=== PATIENT | female | born 1930 | race Caucasian/White ===

== ENCOUNTER → 2016-03-28 | Outpatient (CLI) | payer MEDICARE, MEDICAID ==
[~2016-03-28] MED LIST: ASPIRIN 81M81 MG/TA2 PO; ATROVENT I0.2 MG/1 M IH; BAYER PLUS325 MG PO; CALCIUM 600600 MG PO; CATAPRES 0.1MG0.1 MG PO; CEFTIN 250250 MG/TAB PO; CIPRO 250MG TA250 MG PO; DITROPAN 5MG TAB5 MG PO; DITROPAN XL 5MG5 M1 PO; EPA1000 MG PO; FERROUS SU325 MG/TAB PO; IRON65 MG PO; K-DUR 2020 MEQ PO; KLOR-CON 1010 MEQ PO; LASIX 40MG TABL40 MG PO; LASIX 80MG TABL80 MG PO; LEVAQUIN 2250 MG/TAB PO; LEVAQUIN 5500 MG/TA1 PO; LOPID 600M600 MG/TAB PO; LOTRISONE 0.05%1 CRE TP; MIRAPEX0.5 MG PO; MOTRIN 200200 MG/TAB PO; NAMENDA XR 28MG PO; NIASPAN 500MG500 MG PO; NORCO 325 MG-51 TAB PO; NORVASC 10MG10 MG PO; NS INT FLUSH 1010 ML IV; NYAMYC100000 U/G TOP; NYAMYC100000 U/G TP; PAXIL40 MG PO; PEPTO BISMOL262 MG PO; PRINZIDE 12.5 M1 TA1 PO; RELAFEN 50500 MG/TAB PO; ROCEPHIN 2GM VIAL2 G IV; RT ALBUTER2.5 MG/0.5 IH; TOPROL XL100 MG PO; TRIAMCINOLONE0.5% TP; TRICOR145 MG PO; TYLENOL 325MG325 MG PO; ULTRAM 50MG TAB50 MG PO; VITAMIN C500 MG PO; VITAMIN D 1001000 IU PO; [UNRECOGNIZED DRUG - CODE] IV
[2016-03-28 12:21] LABS: CALCIUM 10.5 mg/dL (8.4-10.2); CREATININE, serum 0.73 mg/dL (0.52-1.25); POTASSIUM 4.2 mmol/L (3.4-5.0)
== END ==
LOC: ZCOL.LAB 11:35
PROVIDERS: Internal Medicine
DX: I10 Essential (primary) hypertension (principal)

== ENCOUNTER → 2016-08-16 | Outpatient (CLI) | payer MEDICARE, MEDICAID | LOC: COL.RAD 09:28 | DX: M79.644 Pain in right finger(s) (principal); M18.0 Bilateral primary osteoarthritis of first carpometacarpal joints; M19.042 Primary osteoarthritis, left hand; M81.0 Age-related osteoporosis without current pathological fracture; M89.742 Major osseous defect, left hand; M89.741 Major osseous defect, right hand ==

== ENCOUNTER → 2016-09-03 | Outpatient (CLI) | payer MEDICARE, MEDICAID | LOC: COL.RAD 09:35 | DX: M18.0 Bilateral primary osteoarthritis of first carpometacarpal joints (principal); M79.644 Pain in right finger(s) | CPT/HCPCS: J3301; Q9967 ==

== ENCOUNTER → 2016-11-05 | Outpatient (CLI) | payer MEDICARE, MEDICAID ==
[2016-11-05 16:47] LABS: BASO # 0.1 (0.0-0.2); BASO % 0.9 % (0.0-2.0); EOS # 0.5 (0.0-0.7); EOS % 4.4 % (0-4.0); GRAN # 6.7 (1.4-6.5); GRAN % 60.1 % (42.2-75.2); HEMATOCRIT 42.1 % (37.0-47.0); LYMPH # 2.8 (1.2-3.4); LYMPH % 24.8 % (20.0-51.0); MEAN CELL VOLUME 85 fl (80.0-100.0); MEAN CORPUSCULAR HEMOGLOBIN 28 pg (27.0-31.0); MEAN CORPUSCULAR HGB CONC 33 g/dl (33.0-37.0); MONO # 1.1 (0.1-0.6); MONO % 9.4 % (1.7-9.3); PLATELET COUNT 349 K/mm3 (130-400); RED BLOOD COUNT 4.95 M/mm3 (4.10-5.30); REDCELL DISTRIBUTION WIDTH-CV 14.9 % (11.5-14.5); WHITE BLOOD COUNT 11.1 K/mm3 (4.8-10.8)
[2016-11-05 16:57] LABS: CALCIUM 9.6 mg/dL (8.4-10.2); CREATININE, serum 0.61 mg/dL (0.52-1.25); POTASSIUM 4.3 mmol/L (3.4-5.0)
== END ==
LOC: ZCOL.LAB 16:17
PROVIDERS: Internal Medicine
DX: D50.9 Iron deficiency anemia, unspecified (principal); I10 Essential (primary) hypertension

== ENCOUNTER 2017-01-22 09:33 | Emergency (ER) | payer MEDICARE, MEDICAID ==
[2005-10-19 22:51] VITALS: BP 105/56
[~2017-01-22] VITALS: Ht 160 cm; Wt 86.8 kg
[2017-01-22 09:39] VITALS: BP 151/71; TEMP 96.9
[2017-01-22 10:16] LABS: BASO # 0.1 (0.0-0.2); EOS # 0.4 (0.0-0.7); EOS % 3.5 % (0-4.0); GRAN # 7.5 (1.4-6.5); GRAN % 63.6 % (42.2-75.2); HEMATOCRIT 41.6 % (37.0-47.0); HEMOGLOBIN 13.9 g/dl (12.5-16.0); LYMPH # 2.4 (1.2-3.4); LYMPH % 20.7 % (20.0-51.0); MEAN CELL VOLUME 85 fl (80.0-100.0); MEAN CORPUSCULAR HEMOGLOBIN 28 pg (27.0-31.0); MEAN CORPUSCULAR HGB CONC 33 g/dl (33.0-37.0); MONO # 1.3 (0.1-0.6); PLATELET COUNT 339 K/mm3 (130-400); RED BLOOD COUNT 4.92 M/mm3 (4.10-5.30); WHITE BLOOD COUNT 11.8 K/mm3 (4.8-10.8)
[2017-01-22 10:25] LABS: COLLECTION METHOD CLEAN CATCH
[2017-01-22 10:44] LABS: ADJUSTED CALCIUM 9.9 mg/dL (8.4-10.2); ALBUMIN 3.9 gm/dL (3.5-5.0); BILIRUBIN,TOTAL 0.5 mg/dL (0.0-1.0); CALCIUM 9.8 mg/dL (8.4-10.2); CREATININE, serum 0.55 mg/dL (0.52-1.25); POTASSIUM 3.6 mmol/L (3.4-5.0); TOTAL PROTEIN 7.5 gm/dL (6.4-8.2)
[2017-01-22 10:49] LABS: MUCOUS Present /lpf; PH 7 (5-8); SQUAMOUS EPITHELIAL 0-2 /hpf; URINE APPEARANCE Hazy; URINE BACTERIA Rare /hpf; URINE BILIRUBIN Negative (NEGATIVE); URINE BLOOD Negative (NEGATIVE); URINE COLOR Yellow; URINE GLUCOSE Negative (NEGATIVE); URINE KETONE Negative (NEGATIVE); URINE LEUKOCYTE ESTERASE Trace (NEGATIVE); URINE PROTEIN(semi-quant) Negative (NEGATIVE); URINE RBC None Seen /hpf; URINE UROBILINOGEN Negative (NEGATIVE); URINE WBC 0-2 /hpf
[2017-01-22] MEDS ORDERED: VITAMIN D3400 I1 PO (11:08)
[2017-01-22] MEDS ORDERED: LOMOTIL 0.025 M1 TAB PO (11:10)
[2017-01-22] MEDS ORDERED: NAMENDA XR 28MG PO (11:11)
[2017-01-22] MEDS ORDERED: ZANTAC 150MG T150 MG PO (11:12)
[2017-01-22] MEDS ORDERED: VESICARE10 MG PO (11:12)
[2017-01-22] MEDS ORDERED: TOPROL XL 25MG25 MG PO (11:13)
[2017-01-22] MEDS ORDERED: FOSAMAX 70MG TA70 MG PO (11:13)
[2017-01-22] MEDS ORDERED: COLACE 100100 MG/CAP PO (11:13)
[2017-01-22] MEDS ORDERED: ANTIVERT 12.512.5 MG PO (11:14)
[2017-01-22] MEDS ORDERED: LEXAPRO 10MG10 MG PO (11:14)
[2017-01-22] MEDS ORDERED: NORCO 325 MG-51 TAB PO (11:15)
[2017-01-22 12:28] VITALS: PULSE 62
== END 2017-01-22 12:29 | disposition home or self-care (01) ==
LOC: COL.ER 09:33
PROVIDERS: Family Medicine
DX: S06.339A Contusion and laceration of cerebrum, unspecified, with loss of consciousness of unspecified duration, initial encounter (principal); G20 Parkinson's disease; Z23 Encounter for immunization; Z79.82 Long term (current) use of aspirin; Z90.49 Acquired absence of other specified parts of digestive tract; W18.39XA Other fall on same level, initial encounter; W22.8XXA Striking against or struck by other objects, initial encounter; Y92.009 Unspecified place in unspecified non-institutional (private) residence as the place of occurrence of the external cause

== ENCOUNTER → 2017-01-24 | Outpatient (CLI) | payer MEDICARE, MEDICAID ==
[~2017-01-24] MED LIST changes: +ANTIVERT 12.512.5 MG PO; +CARAFATE S1 GM/10 ML PO; +CEFTIN500 MG PO; +COLACE 100100 MG/CAP PO; +FOSAMAX 70MG TA70 MG PO; +LEXAPRO 10MG10 MG PO; +LIPITOR 40MG TA40 MG PO; +LOMOTIL 0.025 M1 TAB PO; +PRILOSEC 20MG20 MG PO; +TOPROL XL 25MG25 MG PO; +VESICARE10 MG PO; +VITAMIN D3400 I1 PO; +ZANTAC 150MG T150 MG PO
== END ==
LOC: COL.RAD 08:51
DX: M79.672 Pain in left foot (principal)

== ENCOUNTER 2017-01-26 07:06 | Emergency (ER) | payer MEDICARE, MEDICAID ==
[2005-10-19 22:51] VITALS: BP 105/56
[~2017-01-26] VITALS: Ht 160 cm; Wt 86.8 kg
[2017-01-26 07:06] VITALS: TEMP 97
[~2017-01-26 07:06] MED LIST changes: -CARAFATE S1 GM/10 ML PO; -CEFTIN500 MG PO; -LIPITOR 40MG TA40 MG PO; -PRILOSEC 20MG20 MG PO
[2017-01-26 07:56] LABS: BASO # 0.1 (0.0-0.2); BASO % 0.7 % (0.0-2.0); EOS # 0.5 (0.0-0.7); EOS % 3.8 % (0-4.0); GRAN # 8.7 (1.4-6.5); GRAN % 70.9 % (42.2-75.2); HEMATOCRIT 41.1 % (37.0-47.0); HEMOGLOBIN 13.4 g/dl (12.5-16.0); LYMPH # 1.9 (1.2-3.4); LYMPH % 15.7 % (20.0-51.0); MEAN CELL VOLUME 85 fl (80.0-100.0); MEAN CORPUSCULAR HEMOGLOBIN 28 pg (27.0-31.0); MEAN CORPUSCULAR HGB CONC 33 g/dl (33.0-37.0); MEAN PLATELET VOLUME 9.7 fl (7.4-10.4); MONO % 8.4 % (1.7-9.3); PLATELET COUNT 347 K/mm3 (130-400); RED BLOOD COUNT 4.85 M/mm3 (4.10-5.30); WHITE BLOOD COUNT 12.3 K/mm3 (4.8-10.8)
[2017-01-26 07:59] LABS: ADJUSTED CALCIUM 9.7 mg/dL (8.4-10.2); ALBUMIN 3.8 gm/dL (3.5-5.0); BILIRUBIN,TOTAL 0.5 mg/dL (0.0-1.0); CALCIUM 9.5 mg/dL (8.4-10.2); CREATININE, serum 0.6 mg/dL (0.52-1.25); POTASSIUM 3.6 mmol/L (3.4-5.0); TOTAL PROTEIN 7.3 gm/dL (6.4-8.2)
[2017-01-26 08:18] LABS: COLLECTION METHOD CLEAN CATCH
[2017-01-26 08:35] LABS: AMORPHOUS CRYSTAL Present /uL; MUCOUS Present /lpf; PH 8 (5-8); URINE APPEARANCE Turbid; URINE BACTERIA Rare /hpf; URINE BILIRUBIN Negative (NEGATIVE); URINE BLOOD Negative (NEGATIVE); URINE COLOR Yellow; URINE GLUCOSE Negative (NEGATIVE); URINE KETONE Negative (NEGATIVE); URINE LEUKOCYTE ESTERASE 2+ (NEGATIVE); URINE PROTEIN(semi-quant) Negative (NEGATIVE); URINE RBC None Seen /hpf; URINE UROBILINOGEN Negative (NEGATIVE); URINE WBC 20-50 /hpf
[2017-01-26] MEDS ORDERED: CEFTIN500 MG PO (08:55)
[2017-01-26 09:20] VITALS: BP 135/62; PULSE 62
== END 2017-01-26 09:20 | disposition home or self-care (01) ==
LOC: COL.ER 07:06
PROVIDERS: Emergency Medicine
DX: S00.93XA Contusion of unspecified part of head, initial encounter (principal); N39.0 Urinary tract infection, site not specified; Z79.82 Long term (current) use of aspirin; W05.0XXA Fall from non-moving wheelchair, initial encounter
CPT/HCPCS: J0696

== ENCOUNTER 2017-01-29 09:14 | Emergency (ER) | payer MEDICARE, MEDICAID ==
[2005-10-19 22:51] VITALS: BP 105/56
[~2017-01-29] VITALS: Ht 160 cm; Wt 86.8 kg
[~2017-01-29 09:14] MED LIST changes: +CEFTIN500 MG PO
[2017-01-29 09:27] VITALS: TEMP 97.8
[2017-01-29] MEDS ORDERED: CARAFATE S1 GM/10 ML PO (12:17)
[2017-01-29 12:53] VITALS: BP 118/55; PULSE 59
== END 2017-01-29 12:53 | disposition home or self-care (01) ==
LOC: COL.ER 09:14
DX: K21.9 Gastro-esophageal reflux disease without esophagitis (principal); Z79.82 Long term (current) use of aspirin

== ENCOUNTER 2017-02-21 16:01 | Inpatient (IN) | payer MEDICARE, MEDICAID ==
[~2017-02-21] VITALS: Ht 160 cm; Wt 88.2 kg
[~2017-02-21 16:01] MED LIST changes: +CARAFATE S1 GM/10 ML PO
[2017-02-21 16:32] LABS: BASO # 0.1 (0.0-0.2); BASO % 0.9 % (0.0-2.0); EOS # 0.7 (0.0-0.7); EOS % 7.1 % (0-4.0); GRAN # 5.1 (1.4-6.5); GRAN % 52.1 % (42.2-75.2); HEMATOCRIT 38.9 % (37.0-47.0); LYMPH % 29.9 % (20.0-51.0); MEAN CELL VOLUME 84 fl (80.0-100.0); MEAN CORPUSCULAR HEMOGLOBIN 28 pg (27.0-31.0); MEAN CORPUSCULAR HGB CONC 33 g/dl (33.0-37.0); MEAN PLATELET VOLUME 9.4 fl (7.4-10.4); MONO % 9.7 % (1.7-9.3); PLATELET COUNT 282 K/mm3 (130-400); RED BLOOD COUNT 4.66 M/mm3 (4.10-5.30); REDCELL DISTRIBUTION WIDTH-CV 14.4 % (11.5-14.5)
[2017-02-21 16:44] LABS: ALANINE AMINOTRANSFERASE 32 U/L (9-52); ALBUMIN 3.5 gm/dL (3.5-5.0); ALKALINE PHOSPHATASE 140 U/L (50-136); ANION GAP 9 mmol/L (7-16); AST,SGOT 18 U/L (15-37); BILIRUBIN,TOTAL 0.5 mg/dL (0.0-1.0); BLOOD UREA NITROGEN 10 mg/dL (7-17); C-REACTIVE PROTEIN 1.6 mg/dL (0.0-0.9); CALCIUM 9.6 mg/dL (8.4-10.2); CARBON DIOXIDE 27 mmol/L (22-30); CHLORIDE 105 mmol/L (98-107); CREATININE, serum 0.57 mg/dL (0.52-1.25); GLUCOSE 94 mg/dL (74-106); POTASSIUM 3.9 mmol/L (3.4-5.0); SODIUM 141 mmol/L (137-145); TOTAL PROTEIN 6.9 gm/dL (6.4-8.2)
[2017-02-21 16:49] LABS: COLLECTION METHOD CATHETER
[2017-02-21 16:53] LABS: TROPONIN-I < 0.012 ng/mL (0.000-0.034)
[2017-02-21 16:57] LABS: PH 6 (5-8); SQUAMOUS EPITHELIAL 0-2 /hpf; URINE APPEARANCE Clear; URINE BACTERIA Rare /hpf; URINE BILIRUBIN Negative (NEGATIVE); URINE BLOOD Negative (NEGATIVE); URINE COLOR Yellow; URINE GLUCOSE Negative (NEGATIVE); URINE KETONE Negative (NEGATIVE); URINE LEUKOCYTE ESTERASE Negative (NEGATIVE); URINE NITRATE Negative (NEGATIVE); URINE PROTEIN(semi-quant) Negative (NEGATIVE); URINE RBC 0-2 /hpf; URINE UROBILINOGEN Negative (NEGATIVE)
[2017-02-21] MEDS ORDERED: ANTIVERT 12.512.5 MG PO (17:08)
[2017-02-21] MEDS ORDERED: PRILOSEC 20MG20 MG PO (17:34)
[2017-02-21 20:43] VITALS: BP 131/46; PULSE 57; TEMP 97.7
[2017-02-22 03:29] VITALS: BP 138/56; PULSE 70; TEMP 98.1
[2017-02-22 06:57] LABS: BASO # 0.1 (0.0-0.2); EOS # 0.6 (0.0-0.7); EOS % 6.4 % (0-4.0); GRAN # 5.8 (1.4-6.5); GRAN % 61.1 % (42.2-75.2); HEMOGLOBIN 12.7 g/dl (12.5-16.0); LYMPH # 2.1 (1.2-3.4); LYMPH % 21.5 % (20.0-51.0); MEAN CELL VOLUME 84 fl (80.0-100.0); MEAN CORPUSCULAR HEMOGLOBIN 27 pg (27.0-31.0); MEAN CORPUSCULAR HGB CONC 33 g/dl (33.0-37.0); MEAN PLATELET VOLUME 9.9 fl (7.4-10.4); MONO # 0.9 (0.1-0.6); MONO % 9.7 % (1.7-9.3); PLATELET COUNT 295 K/mm3 (130-400); RED BLOOD COUNT 4.63 M/mm3 (4.10-5.30); REDCELL DISTRIBUTION WIDTH-CV 14.4 % (11.5-14.5)
[2017-02-22 07:16] LABS: CALCIUM 9.2 mg/dL (8.4-10.2); CREATININE, serum 0.55 mg/dL (0.52-1.25); POTASSIUM 3.4 mmol/L (3.4-5.0)
[2017-02-22 08:37] VITALS: BP 130/61; PULSE 65; TEMP 97.9
[2017-02-22 12:07] VITALS: BP 134/45; PULSE 60; TEMP 98.2
[2017-02-22] MEDS ORDERED: LIPITOR 40MG TA40 MG PO (13:18)
== END 2017-02-22 14:16 | DRG 71 ==
LOC: COL.ER 16:01 → MEDICAL 17:56 → EDBEDREQ 18:31 → MEDICAL 21:00
PROVIDERS: Emergency Medicine
DX: G93.41 Metabolic encephalopathy (principal); G45.9 Transient cerebral ischemic attack, unspecified; I10 Essential (primary) hypertension; I44.0 Atrioventricular block, first degree; E66.9 Obesity, unspecified
CPT/HCPCS: 99223-AI; 99238; J1650; J7030

== ENCOUNTER → 2017-03-13 | Outpatient (CLI) | payer MEDICARE, MEDICAID ==
[~2017-03-13] MED LIST changes: +LIPITOR 40MG TA40 MG PO; +PRILOSEC 20MG20 MG PO
[2017-03-13 13:53] LABS: COLLECTION METHOD CLEAN CATCH
[2017-03-13 14:11] LABS: MUCOUS Present /lpf; PH 6 (5-8); SQUAMOUS EPITHELIAL 0-2 /hpf; URINE APPEARANCE Hazy; URINE BACTERIA None Seen /hpf; URINE BILIRUBIN Negative (NEGATIVE); URINE BLOOD Negative (NEGATIVE); URINE COLOR Yellow; URINE GLUCOSE Negative (NEGATIVE); URINE KETONE Negative (NEGATIVE); URINE LEUKOCYTE ESTERASE 1+ (NEGATIVE); URINE NITRATE Negative (NEGATIVE); URINE PROTEIN(semi-quant) Negative (NEGATIVE); URINE RBC 0-2 /hpf
== END ==
LOC: ZCOL.LAB 13:52
PROVIDERS: Internal Medicine
DX: R30.0 Dysuria (principal)

== ENCOUNTER → 2017-03-27 | Outpatient (CLI) | payer MEDICARE, MEDICAID ==
[2017-03-27 16:25] LABS: CALCIUM 9.4 mg/dL (8.4-10.2); CREATININE, serum 0.62 mg/dL (0.52-1.25); POTASSIUM 3.5 mmol/L (3.4-5.0)
== END ==
LOC: ZCOL.LAB 15:09
PROVIDERS: Internal Medicine
DX: E55.9 Vitamin D deficiency, unspecified (principal); I10 Essential (primary) hypertension; R60.9 Edema, unspecified

== ENCOUNTER → 2017-06-14 | Outpatient (CLI) | payer MEDICARE, MEDICAID ==
[2017-06-14 15:37] LABS: ALBUMIN 3.2 gm/dL (3.5-5.0); BILIRUBIN UNCONJUGATED 0.2 mg/dL (0.0-1.1); BILIRUBIN,DIRECT 0.3 mg/dL (0.0-0.4); BILIRUBIN,TOTAL 0.4 mg/dL (0.0-1.0); TOTAL PROTEIN 6.7 gm/dL (6.4-8.2)
[2017-06-14 15:48] LABS: CHOLESTEROL RISK RATIO 3.5
== END ==
LOC: ZCOL.LAB 14:53
PROVIDERS: Internal Medicine
DX: G20 Parkinson's disease (principal); E78.5 Hyperlipidemia, unspecified

== ENCOUNTER 2017-08-13 05:20 | Emergency (ER) | payer MEDICARE, MEDICAID ==
[2005-10-19 22:51] VITALS: BP 105/56
[~2017-08-13] VITALS: Ht 160 cm; Wt 84.1 kg
[2017-08-13 05:28] VITALS: TEMP 97.6
[2017-08-13] MEDS ORDERED: CARAFATE S1 GM/10 ML PO (06:37)
[2017-08-13] MEDS ORDERED: LASIX 20MG TABL20 MG PO (06:37)
[2017-08-13] MEDS ORDERED: PEPCID 20MG TAB20 MG PO (06:37)
[2017-08-13] MEDS ORDERED: CEPHALEXIN500 M1 PO (06:52)
[2017-08-13 07:12] VITALS: BP 123/53; PULSE 64
== END 2017-08-13 07:13 | disposition home or self-care (01) ==
LOC: COL.ER 05:20
DX: S09.90XA Unspecified injury of head, initial encounter (principal); S01.01XA Laceration without foreign body of scalp, initial encounter; Z23 Encounter for immunization; W08.XXXA Fall from other furniture, initial encounter; W22.8XXA Striking against or struck by other objects, initial encounter; Y92.129 Unspecified place in nursing home as the place of occurrence of the external cause

== ENCOUNTER → 2017-10-17 | Outpatient (REF) ==
[~2017-10-17] MED LIST changes: +CEPHALEXIN500 M1 PO; +LASIX 20MG TABL20 MG PO; +PEPCID 20MG TAB20 MG PO
[2017-10-17 18:51] LABS: COLLECTION METHOD CATHETER
[2017-10-17 19:13] LABS: PH 7 (5-8); SQUAMOUS EPITHELIAL 0-2 /hpf; URINE APPEARANCE Hazy; URINE BACTERIA Rare /hpf; URINE BILIRUBIN Negative (NEGATIVE); URINE BLOOD Negative (NEGATIVE); URINE COLOR Yellow; URINE GLUCOSE Negative (NEGATIVE); URINE KETONE Negative (NEGATIVE); URINE LEUKOCYTE ESTERASE 1+ (NEGATIVE); URINE NITRATE Negative (NEGATIVE); URINE PROTEIN(semi-quant) Negative (NEGATIVE); URINE RBC 0-2 /hpf; URINE UROBILINOGEN Negative (NEGATIVE)
== END ==
LOC: ZCOL.LAB 18:50
DX: N32.81 Overactive bladder (principal)

== ENCOUNTER → 2018-07-22 | Outpatient (CLI) | payer MEDICARE, MEDICAID ==
[2018-07-22 21:45] LABS: CALCIUM 9.4 mg/dL (8.4-10.2); CREATININE, serum 0.68 (0.52-1.25); POTASSIUM 3.8 mmol/L (3.4-5.0)
== END ==
LOC: COL.LAB 21:12
PROVIDERS: Nurse Practitioner
DX: R60.9 Edema, unspecified (principal)

== ENCOUNTER → 2018-09-24 | Outpatient (CLI) | payer MEDICARE, MEDICAID ==
[2018-09-24 15:32] LABS: BASO # 0.1 (0.0-0.2); EOS # 0.6 (0.0-0.7); EOS % 5.7 % (0-4.0); GRAN # 5.8 (1.4-6.5); GRAN % 56.9 % (42.2-75.2); HEMATOCRIT 37.9 % (37.0-47.0); HEMOGLOBIN 12.3 g/dl (12.5-16.0); LYMPH # 2.8 (1.2-3.4); LYMPH % 27.3 % (20.0-51.0); MEAN CELL VOLUME 83 fl (80.0-100.0); MEAN CORPUSCULAR HEMOGLOBIN 27 pg (27.0-31.0); MEAN CORPUSCULAR HGB CONC 33 g/dl (33.0-37.0); MEAN PLATELET VOLUME 9.6 fl (7.4-10.4); MONO # 0.9 (0.1-0.6); MONO % 8.6 % (1.7-9.3); PLATELET COUNT 314 K/mm3 (130-400); RED BLOOD COUNT 4.58 M/mm3 (4.10-5.30); REDCELL DISTRIBUTION WIDTH-CV 15.3 % (11.5-14.5)
[2018-09-24 16:01] LABS: ALBUMIN 3.3 gm/dL (3.5-5.0); BILIRUBIN UNCONJUGATED 0.2 mg/dL (0.0-1.1); BILIRUBIN,DIRECT 0.1 mg/dL (0.0-0.4); BILIRUBIN,TOTAL 0.3 mg/dL (0.0-1.0); TOTAL PROTEIN 6.7 gm/dL (6.4-8.2)
[2018-09-24 16:16] LABS: CHOLESTEROL RISK RATIO 4.3
[2018-09-24 16:47] LABS: TSH w REFLEX 3.92 uIU/mL (0.465-4.680)
== END ==
LOC: ZCOL.LAB 14:55
PROVIDERS: Nurse Practitioner
DX: E03.9 Hypothyroidism, unspecified (principal); I95.9 Hypotension, unspecified; E78.5 Hyperlipidemia, unspecified; E55.9 Vitamin D deficiency, unspecified

== ENCOUNTER → 2018-09-25 | Outpatient (CLI) | payer MEDICARE, MEDICAID | LOC: ZCOL.LAB 16:08 | DX: E55.9 Vitamin D deficiency, unspecified (principal) ==

== ENCOUNTER → 2019-02-05 | Outpatient (CLI) | payer MEDICARE, MEDICAID ==
[2019-02-05 08:01] LABS: MUCOUS Present /lpf; URINE BACTERIA Many /hpf
== END ==
LOC: ZCOL.LAB 07:15
PROVIDERS: Internal Medicine
DX: R30.0 Dysuria (principal); R35.0 Frequency of micturition

== ENCOUNTER → 2019-02-27 | Outpatient (CLI) | payer MEDICARE, MEDICAID ==
[2019-02-27 13:17] LABS: CREATININE, serum 0.63 (0.52-1.25)
== END ==
LOC: ZCOL.LAB 12:38
PROVIDERS: Internal Medicine
DX: R79.89 Other specified abnormal findings of blood chemistry (principal)

== ENCOUNTER → 2019-08-03 | Outpatient (CLI) | payer MEDICARE, MEDICAID ==
[2019-08-03 11:03] LABS: ALBUMIN 3.7 gm/dL (3.5-5.0); BILIRUBIN,TOTAL 0.5 mg/dL (0.0-1.0); CALCIUM 9.6 mg/dL (8.4-10.2); CREATININE, serum 0.54 (0.52-1.25); POTASSIUM 3.9 mmol/L (3.4-5.0); TOTAL PROTEIN 7.5 gm/dL (6.4-8.2)
[2019-08-03 11:32] LABS: THYROID STIMULATING HORMONE 6.26 uIU/mL (0.465-4.680)
[2019-08-04 13:08] LABS: RPR (VDRL) XXX
[2019-08-04 18:59] LABS: FOLATE (FOLIC ACID) 12.3 ng/mL (7.0-31.4)
== END ==
LOC: ZCOL.LAB 08:42
PROVIDERS: Psychiatry & Neurology Neurology
DX: G31.83 Neurocognitive disorder with Lewy bodies (principal); F02.81 Dementia in other diseases classified elsewhere, unspecified severity, with behavioral disturbance

== ENCOUNTER → 2019-08-06 | Outpatient (CLI) | payer MEDICARE, MEDICAID ==
[2019-08-06 11:16] LABS: BASO # 0.1 (0.0-0.2); BASO % 0.8 % (0.0-2.0); EOS # 0.8 (0.0-0.7); GRAN # 8.4 (1.4-6.5); GRAN % 63.4 % (42.2-75.2); HEMATOCRIT 40.4 % (37.0-47.0); HEMOGLOBIN 12.8 g/dl (12.5-16.0); LYMPH # 2.8 (1.2-3.4); LYMPH % 21.3 % (20.0-51.0); MEAN CELL VOLUME 84 fl (80.0-100.0); MEAN CORPUSCULAR HEMOGLOBIN 27 pg (27.0-31.0); MEAN CORPUSCULAR HGB CONC 32 g/dl (33.0-37.0); MEAN PLATELET VOLUME 9.3 fl (7.4-10.4); MONO # 1.1 (0.1-0.6); MONO % 8.1 % (1.7-9.3); PLATELET COUNT 369 K/mm3 (130-400); RED BLOOD COUNT 4.83 M/mm3 (4.10-5.30); REDCELL DISTRIBUTION WIDTH-CV 15.5 % (11.5-14.5)
== END ==
LOC: ZCOL.LAB 10:57
PROVIDERS: Psychiatry & Neurology Neurology
DX: G20 Parkinson's disease (principal); F02.81 Dementia in other diseases classified elsewhere, unspecified severity, with behavioral disturbance

== ENCOUNTER → 2019-08-11 | Outpatient (CLI) | payer MEDICARE, MEDICAID ==
[2019-08-13 20:31] LABS: CADMIUM BLOOD <0.2 ng/mL (0.0-4.9); LEAD,SERUM** <1.0 mcg/dL (0.0-4.9); MERCURY,SERUM <1 ng/mL (0-9)
== END ==
LOC: ZCOL.LAB 12:20
PROVIDERS: Internal Medicine
DX: R78.71 Abnormal lead level in blood (principal)

== ENCOUNTER → 2019-08-31 | Outpatient (CLI) | payer MEDICARE, MEDICAID ==
[2019-08-31 09:52] LABS: CALCIUM 9.5 mg/dL (8.4-10.2); CREATININE, serum 0.57 (0.52-1.25); POTASSIUM 3.7 mmol/L (3.4-5.0)
== END ==
LOC: ZCOL.LAB 08:51
PROVIDERS: Internal Medicine
DX: R79.89 Other specified abnormal findings of blood chemistry (principal)

== ENCOUNTER 2019-12-19 16:39 | Inpatient (IN) | payer MEDICARE, MEDICAID ==
[~2019-12-19] VITALS: Ht 160 cm; Wt 77.2 kg
[2019-12-19 17:10] LABS: HEMATOCRIT 38.5 % (37.0-47.0); HEMOGLOBIN 12.5 g/dl (12.5-16.0); MEAN CELL VOLUME 80 fl (80.0-100.0); MEAN CORPUSCULAR HEMOGLOBIN 26 pg (27.0-31.0); MEAN CORPUSCULAR HGB CONC 33 g/dl (33.0-37.0); MEAN PLATELET VOLUME 9.3 fl (7.4-10.4); PLATELET COUNT 528 K/mm3 (130-400); RED BLOOD COUNT 4.83 M/mm3 (4.10-5.30); REDCELL DISTRIBUTION WIDTH-CV 15.9 % (11.5-14.5)
[2019-12-19 17:19] LABS: ALBUMIN 3.5 gm/dL (3.5-5.0); BILIRUBIN,TOTAL 1.3 mg/dL (0.0-1.0); CALCIUM 9.7 mg/dL (8.4-10.2); CREATININE, serum 0.76 (0.52-1.25); TOTAL PROTEIN 7.3 gm/dL (6.4-8.2)
[2019-12-19 17:20] LABS: LYMPHOCYTE 5 % (20.0-51.0); NEUTROPHILS 90 % (42.0-75.2); PLATELET ESTIMATE INCREASED (NORMAL)
[2019-12-19 17:21] LABS: ANISOCYTOSIS 1+; TARGET CELLS 1+
[2019-12-19 17:36] LABS: ARTERIAL BLD GAS O2 SATURATION 94.1 % (92-100); ARTERIAL BLD GAS TCO2 CT 25.6; ARTERIAL BLOOD GAS BASE EXCESS 0.2 (-2-2); ARTERIAL BLOOD GAS HCO3 24.5 meq/L (22-26); ARTERIAL BLOOD GAS PCO2 38.5 mmHg (35-45); ARTERIAL BLOOD GAS PO2 71.8 mmHg (80-100); ARTERIAL BLOOD GAS pH 7.42 (7.35-7.45)
[2019-12-19 17:47] LABS: C-REACTIVE PROTEIN 31.6 mg/dL (0.0-0.9)
[2019-12-19 18:11] LABS: COLLECTION METHOD CLEAN CATCH
[2019-12-19 18:45] LABS: MUCOUS Present /lpf; PH 5 (5-8); URINE APPEARANCE Cloudy; URINE BACTERIA Many /hpf; URINE BILIRUBIN Positive (NEGATIVE); URINE BLOOD Negative (NEGATIVE); URINE COLOR Amber; URINE GLUCOSE Negative (NEGATIVE); URINE KETONE Negative (NEGATIVE); URINE LEUKOCYTE ESTERASE Negative (NEGATIVE); URINE NITRATE Negative (NEGATIVE); URINE PROTEIN(semi-quant) 1+ (NEGATIVE); URINE UROBILINOGEN >=4.0 mg/dL (NEGATIVE)
[2019-12-19] MEDS ORDERED: ZYRTEC 10MG10 MG PO (19:48)
[2019-12-19] MEDS ORDERED: IMODIUM 2MG CAPS2 MG PO ×2 (19:49→19:50)
[2019-12-19] MEDS ORDERED: MUCINEX 60600 MG/TA1 PO (19:49)
[2019-12-19] MEDS ORDERED: MYRBETR25MG PO (19:50)
[2019-12-19] MEDS ORDERED: ZOLOFT 50MG50 MG PO (19:51)
[2019-12-19 22:29] VITALS: BP 170/71; PULSE 79; TEMP 98.5
[2019-12-19] MEDS ORDERED: PRINZIDE 25 MG-1 TAB PO (22:29)
--- NOTE | 2019-12-19 23:00 | NUR ---
Admitted to nedical floor from ER with DX pneumonia, forgetful,vague with answers-confused as to time/date, very pleasant, on Bipap, tolerating well, INT to right hand did fall out-restarted INT to left hand. Up to BSC with 2 assist, voiding good amounts.
[2019-12-20] MEDS ORDERED: TYLENOL 325MG325 MG PO (02:50)
[2019-12-20] MEDS ORDERED: NYSTATIN CREAM15 GM TP (02:58)
[2019-12-20] MEDS ORDERED: PEPCID 20MG TAB20 MG PO (02:59)
[2019-12-20] MEDS ORDERED: TUMS ULTRA ST1000 MG PO (03:01)
[2019-12-20] MEDS ORDERED: NORCO 325 MG-51 TAB PO (03:03)
[2019-12-20 04:40] VITALS: BP 119/42; PULSE 70; TEMP 98.4
--- NOTE | 2019-12-20 06:30 | NUR ---
Slept well- did wear Bipap all shift,, Up to BSC for a total of 3 times during the night-voiding well. Did cover buttock open areas with mepilex. Resp virus panel completed- negative.
[2019-12-20 07:15] LABS: BASO # 0.1 (0.0-0.2); BASO % 0.4 % (0.0-2.0); EOS # 0.2 (0.0-0.7); EOS % 1.2 % (0-4.0); GRAN # 13.6 (1.4-6.5); GRAN % 80.6 % (42.2-75.2); HEMATOCRIT 37.3 % (37.0-47.0); HEMOGLOBIN 11.7 g/dl (12.5-16.0); LYMPH # 1.6 (1.2-3.4); LYMPH % 9.3 % (20.0-51.0); MEAN CELL VOLUME 81 fl (80.0-100.0); MEAN CORPUSCULAR HEMOGLOBIN 26 pg (27.0-31.0); MEAN CORPUSCULAR HGB CONC 31 g/dl (33.0-37.0); MEAN PLATELET VOLUME 9.7 fl (7.4-10.4); MONO # 1.3 (0.1-0.6); MONO % 7.7 % (1.7-9.3); PLATELET COUNT 458 K/mm3 (130-400); RED BLOOD COUNT 4.58 M/mm3 (4.10-5.30)
[2019-12-20 07:35] LABS: ALBUMIN 3.2 gm/dL (3.5-5.0); BILIRUBIN,TOTAL 0.7 mg/dL (0.0-1.0); CALCIUM 9.3 mg/dL (8.4-10.2); CREATININE, serum 0.74 (0.52-1.25); POTASSIUM 3.3 mmol/L (3.4-5.0); TOTAL PROTEIN 6.6 gm/dL (6.4-8.2)
[2019-12-20 08:13] VITALS: BP 102/87; PULSE 79; TEMP 98.6
[2019-12-20 11:48] VITALS: BP 118/65; PULSE 77; TEMP 97.9
[2019-12-20 16:14] VITALS: BP 108/43; PULSE 84; TEMP 98.7
--- NOTE | 2019-12-20 17:03 | NUR ---
SW met with patient to complete intake. Patient was sleeping and daughter was present who is also the DP- Anita [phone]. Avelinother states that patient utilizes a walker and lives at [facility] in [facility]. Daughter states that patient's PCP is Cecile Stringer, pharmacy is the pharmacy that [facility] utilizes. Micheal states that SW team should contact Dimitri at [facility] for all DC information as she would be the person that would be assisting during discharge planning. Daughter had no further comments or questions. SW will continue to follow.
[2019-12-20 19:57] VITALS: BP 120/54; PULSE 78; TEMP 97.7
--- NOTE | 2019-12-20 21:25 | NUR ---
Resting in bed. Alert to self. Assessment complete. Wheezing on inspiration, otherwise clear. Heart sounds normal. Bowels active x4. Pulses present throughout. Bilateral lower ext edema +1. INT left hand flushed without complications. Ulcers present to buttocks-mepilex in place. Folds under buttocks erythema. Groin area erythema present. Denies pain. Denies needs at this time. Call light in reach.
[2019-12-21] VITALS (9 sets, daily range): BP systolic 108–125; BP diastolic 34–95; PULSE 71–89; TEMP 97.4–98.2
--- NOTE | 2019-12-21 00:25 | NUR ---
Resting in bed. Denies pain. Denies needs. Call light in reach.
--- NOTE | 2019-12-21 02:22 | NUR ---
Resting in bed. Bipap on. Denies needs. Call light in reach.
--- NOTE | 2019-12-21 04:20 | NUR ---
Resting in bed. Denies needs. Call light in reach.
--- NOTE | 2019-12-21 05:27 | NUR ---
Patient unable to urinate. 558 ml in bladder. Unable to void. Spoke with Dr. Burleson. Straight cath at this time.
--- NOTE | 2019-12-21 06:06 | NUR ---
Patient straight cathed with 600ml of dark yellow urine out. Otherwise uneventful night. Resting in bed this AM. Call light in reach.
--- NOTE | 2019-12-21 07:08 | NUR ---
Report given to DEBBIE Vilchis
[2019-12-21 08:05] LABS: BASO # 0.1 (0.0-0.2); BASO % 0.5 % (0.0-2.0); CALCIUM 9.4 mg/dL (8.4-10.2); CREATININE, serum 0.73 (0.52-1.25); EOS # 0.3 (0.0-0.7); GRAN # 13.3 (1.4-6.5); GRAN % 78.1 % (42.2-75.2); HEMOGLOBIN 11.4 g/dl (12.5-16.0); LYMPH # 1.7 (1.2-3.4); LYMPH % 9.9 % (20.0-51.0); MEAN CELL VOLUME 81 fl (80.0-100.0); MEAN CORPUSCULAR HEMOGLOBIN 26 pg (27.0-31.0); MEAN CORPUSCULAR HGB CONC 32 g/dl (33.0-37.0); MEAN PLATELET VOLUME 10.1 fl (7.4-10.4); MONO # 1.5 (0.1-0.6); MONO % 8.7 % (1.7-9.3); PLATELET COUNT 497 K/mm3 (130-400); POTASSIUM 3.8 mmol/L (3.4-5.0); RED BLOOD COUNT 4.45 M/mm3 (4.10-5.30); REDCELL DISTRIBUTION WIDTH-CV 16.3 % (11.5-14.5)
[2019-12-21 08:06] LABS: HEMATOCRIT 36.2 % (37.0-47.0)
--- NOTE | 2019-12-21 09:06 | NUR ---
Pt napping upon entry, easily awakened, no C/O pain at this time, has unproductive cough. Shift assessments complete, left Pt call light in reach, bed in lowest position.
--- NOTE | 2019-12-21 15:20 | NUR ---
Initial visit; Patient and her daughter thanked Lieutenant Ballistics for looking in on her and offering encouragement and prayer. Lieutenant Ballistics will follow up while Dory is a patient here.
--- NOTE | 2019-12-21 16:00 | NUR ---
RUBINA met with the patient and her daughter, Anita, to review d/c plan and to discuss PT/OT's recommendation of returning back to [facility] with home health vs SNF. The patient states that she needs to talk to her siblings about this first before making a decision. RUBINA contacted and faxed updates to Dimitri at [facility]. Dimitri reports that they bring in their therapy from [facility] and that they will see the patient 2-5 times a week. RUBINA updated Anita about this. Anita states that she would just prefer for the patient to return back to [facility] with increased assistance for using the restroom and outpatient therapy. SW to inform the clinical team of this.
--- NOTE | 2019-12-21 18:12 | NUR ---
Pt resting in the room today, has had some C/O pain this afternoon and medications given for relief with good results. Pt urinated 550 ml this afternoon, was able to use bedside commode with assistance. No other issues noted today. VS have remained stable.
--- NOTE | 2019-12-21 18:55 | NUR ---
Resting in bed. Assessment complete. Wheezing on inspiration and expiration. Cough green mucus. Sputum cup in room. Heart sounds normal. Bowels active x4. Pulses present throughout. Bilateral lower ext edema +1. x2 ulcers to buttocks. Dressing CDI. Repositioned. Erythem/excoriation to groin area. INT left hand flushed without complications. Denies pain at this time. Denies needs. Call light in reach.
--- NOTE | 2019-12-21 23:58 | NUR ---
Patient up to bedside commode and returned to bed .Denies needs. Call light in reach.
[2019-12-22] VITALS (7 sets, daily range): BP systolic 106–134; BP diastolic 53–78; PULSE 80–109; TEMP 97.2–98.8
--- NOTE | 2019-12-22 04:14 | NUR ---
Resting in bed. Denies needs. Call light in reach.
--- NOTE | 2019-12-22 04:31 | NUR ---
Patient reported generalized aches after awakening. Provided with PRN tylenol. Call light in reach.
--- NOTE | 2019-12-22 05:26 | NUR ---
Patient required tylenol for aches during night. Otherwise uneventful night. Resting in bed this AM. Call light in reach.
[2019-12-22 06:51] LABS: HEMATOCRIT 37.8 % (37.0-47.0); HEMOGLOBIN 12.2 g/dl (12.5-16.0); MEAN CELL VOLUME 80 fl (80.0-100.0); MEAN CORPUSCULAR HEMOGLOBIN 26 pg (27.0-31.0); MEAN CORPUSCULAR HGB CONC 32 g/dl (33.0-37.0); MEAN PLATELET VOLUME 9.8 fl (7.4-10.4); PLATELET COUNT 517 K/mm3 (130-400); RED BLOOD COUNT 4.73 M/mm3 (4.10-5.30); REDCELL DISTRIBUTION WIDTH-CV 15.9 % (11.5-14.5)
--- NOTE | 2019-12-22 07:01 | NUR ---
Report given to DEBBIE Vilchis
[2019-12-22 07:08] LABS: CALCIUM 9.3 mg/dL (8.4-10.2); CREATININE, serum 0.64 (0.52-1.25); POTASSIUM 3.2 mmol/L (3.4-5.0)
[2019-12-22 07:10] LABS: EOSINOPHIL 6 % (0-4); LYMPHOCYTE 13 % (20.0-51.0); MICROCYTOSIS 1+; NEUTROPHILS 72 % (42.0-75.2); PLATELET ESTIMATE INCREASED (NORMAL)
--- NOTE | 2019-12-22 09:55 | NUR ---
Pt awake and alert this morning upon entry, no C/O pain. Shift assessments complete, left Pt call light in reach, bed in lowest position, alarm on.
--- NOTE | 2019-12-22 09:57 | NUR ---
Follow-up visit; Patient thanked Label Maker for coming in to check on her this morning and was pleased when Label Maker offered her a blessing.
[2019-12-22 12:23] LABS: ARTERIAL BLD GAS TCO2 CT 29.5; ARTERIAL BLOOD GAS BASE EXCESS 3.9 (-2-2); ARTERIAL BLOOD GAS HCO3 28.3 meq/L (22-26); ARTERIAL BLOOD GAS PCO2 41.6 mmHg (35-45); ARTERIAL BLOOD GAS PO2 63.7 mmHg (80-100); ARTERIAL BLOOD GAS pH 7.45 (7.35-7.45)
[2019-12-22 14:00] LABS: INR 1.3 (0.8-3.0); PROTHROMBIN TIME 15.1 SECONDS (9.7-12.8)
--- NOTE | 2019-12-22 15:01 | NUR ---
RUBINA attended clinical rounds. The patient is going to have a CAT scan of her chest today. RUBINA faxed updates to [facility].
[2019-12-22 18:01] LABS: ARTERIAL BLD GAS O2 SATURATION 93.6 % (92-100); ARTERIAL BLD GAS TCO2 CT 28.1; ARTERIAL BLOOD GAS BASE EXCESS 2.5 (-2-2); ARTERIAL BLOOD GAS HCO3 26.8 meq/L (22-26); ARTERIAL BLOOD GAS PCO2 40.4 mmHg (35-45); ARTERIAL BLOOD GAS PO2 67.6 mmHg (80-100); ARTERIAL BLOOD GAS pH 7.44 (7.35-7.45)
[2019-12-22 18:10] LABS: GLUCOSE,PLEURAL FLUID 110 mg/dL; TOTAL PROTEIN,PLEURAL FLUID 4.4 gm/dL
[2019-12-22 18:17] LABS: PLEURAL FLUID RBC 1000 /mm3 (0-0); PLEURAL FLUID WBC 2541 /mm3
[2019-12-22 18:21] LABS: PLEURAL FLUID APPEARANCE CLEAR; PLEURAL FLUID COLOR YELLOW
--- NOTE | 2019-12-22 20:30 | NUR ---
Initial shift assessment done- - pt very pleasant, confused--pt had pulled her IV out-laying it on the bed side table. Will start another INT - O2 at 8L high flow, denies any SOB or pain.
[2019-12-23 03:49] VITALS: BP 113/59; PULSE 80; TEMP 97.8
--- NOTE | 2019-12-23 04:59 | NUR ---
Quiet night-- has been resting quietly- no SOB, has been on Bipap most of the night, VSS
--- NOTE | 2019-12-23 06:00 | NUR ---
Up to BSC, could not void--no urine during this 12 shift and unsure of urine output on days, straight cathed per order for 500cc dark dominic urine
[2019-12-23 06:27] LABS: HEMATOCRIT 40.2 % (37.0-47.0); HEMOGLOBIN 12.7 g/dl (12.5-16.0); MEAN CELL VOLUME 80 fl (80.0-100.0); MEAN CORPUSCULAR HEMOGLOBIN 25 pg (27.0-31.0); MEAN CORPUSCULAR HGB CONC 32 g/dl (33.0-37.0); MEAN PLATELET VOLUME 9.8 fl (7.4-10.4); PLATELET COUNT 676 K/mm3 (130-400); RED BLOOD COUNT 5.04 M/mm3 (4.10-5.30); REDCELL DISTRIBUTION WIDTH-CV 16.2 % (11.5-14.5)
[2019-12-23 06:40] LABS: ANISOCYTOSIS 1+; BAND 5 % (0-10); CALCIUM 9.9 mg/dL (8.4-10.2); CREATININE, serum 0.94 (0.52-1.25); LYMPHOCYTE 7 % (20.0-51.0); MAGNESIUM 2.4 mg/dL (1.6-2.3); MICROCYTOSIS 1+; NEUTROPHILS 88 % (42.0-75.2); PLATELET ESTIMATE INCREASED (NORMAL)
--- NOTE | 2019-12-23 07:59 | NUR ---
PATIENT WORE BIPAP LAST NOC, OFF AT 0800, SPO2 92%, 12/6, 40%, RICHARD WEL.
[2019-12-23 08:06] VITALS: BP 119/66; PULSE 85; TEMP 98.3
[2019-12-23 11:05] LABS: ARTERIAL BLD GAS O2 SATURATION 97.6 % (92-100); ARTERIAL BLD GAS TCO2 CT 25.4; ARTERIAL BLOOD GAS HCO3 24.2 meq/L (22-26); ARTERIAL BLOOD GAS PCO2 37.8 mmHg (35-45); ARTERIAL BLOOD GAS pH 7.42 (7.35-7.45)
[2019-12-23 11:19] VITALS: BP 117/43; PULSE 77; TEMP 97.4
--- NOTE | 2019-12-23 15:45 | NUR ---
The patient is having a repeat COVID test. RUBINA notified and faxed updates to [facility]. The receptionist secretary reports that she will notify her RN, Dimitri, and have Dimitri contact RUBINA back.
--- NOTE | 2019-12-23 16:28 | NUR ---
BIPAP PER DR SCOTT IS HOUR OF SLEEP PRN. PATIENT ON 4.5LPM, SPO2 93%.
--- NOTE | 2019-12-23 18:17 | NUR ---
Pt assessment completed and charted, medications administered per mar. Pt alert, disoriented, some confused conversation but speech is clear. Pt is pleasant and cooperative w/ cares. Pt has LWR INT IV, flushed well this afternoon, appears infiltrated, will have Jaimie RN take a look and reassess, pt also c/o pain at the site. LS diminished throughout, pt on 5-6L HF NC satting low 90s. Pt was moved from room 317 to 307, placed in Droplet/Contact precautions, covid swabbed. HRRR. Pulses strong bilaterally. Pt denied any needs throughout day, has been sleeping off and on throughout day. Pt was assisted to recliner w/ PT prior to room transfer.
[2019-12-23 20:00] VITALS: BP 122/68; PULSE 67
--- NOTE | 2019-12-23 21:32 | NUR ---
Pt resting in bed, asessment completed. lung sounds are diminished with fine crackles, productive cough and pt reports shortness of breath. heart sounds are regular and normal. alert and oriented to person and place, hard of hearing. oral medications given per APR. pt IV site infiltrated and painful to the touch. charge nurse to attempt IV placement. no other needs at this time, will continue to monitor.
--- NOTE | 2019-12-23 21:47 | NUR ---
CHARGE NURSE, TIRSO LEWIS STARTED IV. 22 GAUGE IN THE LEFT WRIST, IV ANTIBIOTICS RUNNING NOW.
[2019-12-23 23:12] VITALS: BP 120/72; PULSE 68
[2019-12-24] VITALS (529 sets, daily range): BP systolic 118–138; BP diastolic 61–72; PULSE 61–75; TEMP 97.6–98.9; O2SAT 86–99
[2019-12-24 03:15] LABS: ARTERIAL BLD GAS O2 SATURATION 91.4 % (92-100); ARTERIAL BLD GAS TCO2 CT 29.2; ARTERIAL BLOOD GAS BASE EXCESS 3.2 (-2-2); ARTERIAL BLOOD GAS HCO3 27.9 meq/L (22-26); ARTERIAL BLOOD GAS PCO2 42.9 mmHg (35-45); ARTERIAL BLOOD GAS PO2 60.9 mmHg (80-100); ARTERIAL BLOOD GAS pH 7.43 (7.35-7.45)
--- NOTE | 2019-12-24 05:48 | NUR ---
pt slept most of night, on bipap. currently on oxygen via high flow nasal cannula at 5 liters. gave medications per APR. no fevers and vital signs remain stable, no other needs at this time.
--- NOTE | 2019-12-24 08:21 | NUR ---
Dimitri, at [facility], returned RUBINA's phone call. RUBINA updated Dimitri on the patient's current status. Dimitri reports that they can take the patient back, provided they can still care for her. Dimitri states that they would be able to provide increased assistance and help with oxygen.
--- NOTE | 2019-12-24 09:45 | NUR ---
Pt assessment complete. Pt is sleeping upon entry, she arouses to voice. She is oriented x2. Her breathing is tachypneic, O2 increased to 10L while in the room to maintain O2 saturation of 90%. Dr. Hilliard notified. Pt denies any pain. Occasionally has confused conversation. Pt very hard of hearing. IV to Lwrist flushes without complications. Mepilex changed to bottom, pt repositioned. Isolation precautions in place. Attempted lab draw x2, lab notified to have a tech draw blood order for PICC line in, AIVS notified. Bed alarm in place. Will continue to monitor.
--- NOTE | 2019-12-24 11:25 | NUR ---
Pt transferred down to ICU bed 7 at this time. Daughter Anita notified.
--- NOTE | 2019-12-24 11:30 | NUR ---
Patient received into icu room 7. She is on 10 L/min O2 with hiflow cannula. Dr. Hilliard gives order for Airvo. PHP DEVELOPER notified. She is examined and orders reviewed. Care taken over at this time.
--- NOTE | 2019-12-24 12:54 | NUR ---
Vancomycin Initial Dosing Pharmacy Note Ordering provider: Austin Burleson MD Indication/duration: CAP Relevant comorbidities: Covid PUI requiring 9L O2, on Zosyn LABS: eCrCl~ 40 mL/min, WBC 23.4, SCr has increased from 0.76 to 0.94 Recommendation: Loading dose: 1.5 grams given 12/24/19 @ 12:30 Maintenance dose: 1.25 grams every 24 hours Trough goal: 15-20 ug/mL Pharmacy will continue to follow and adjust as needed.
--- NOTE | 2019-12-24 13:00 | NUR ---
DEBBIE Lamb here to place PICC line.
[2019-12-24 13:20] LABS: ARTERIAL BLD GAS O2 SATURATION 93.6 % (92-100); ARTERIAL BLD GAS TCO2 CT 28.1; ARTERIAL BLOOD GAS BASE EXCESS 2.8 (-2-2); ARTERIAL BLOOD GAS HCO3 26.9 meq/L (22-26); ARTERIAL BLOOD GAS PCO2 39.5 mmHg (35-45); ARTERIAL BLOOD GAS PO2 68.5 mmHg (80-100); ARTERIAL BLOOD GAS pH 7.45 (7.35-7.45)
[2019-12-24 14:08] LABS: HEMOGLOBIN 11.3 g/dl (12.5-16.0); MEAN CELL VOLUME 79 fl (80.0-100.0); MEAN CORPUSCULAR HEMOGLOBIN 26 pg (27.0-31.0); MEAN CORPUSCULAR HGB CONC 32 g/dl (33.0-37.0); MEAN PLATELET VOLUME 9.4 fl (7.4-10.4); PLATELET COUNT 591 K/mm3 (130-400); RED BLOOD COUNT 4.42 M/mm3 (4.10-5.30)
[2019-12-24 14:13] LABS: ALBUMIN 2.9 gm/dL (3.5-5.0); BILIRUBIN,TOTAL 0.5 mg/dL (0.0-1.0); CALCIUM 8.7 mg/dL (8.4-10.2); CREATININE, serum 1.08 (0.52-1.25); MAGNESIUM 2.3 mg/dL (1.6-2.3); TOTAL PROTEIN 6.2 gm/dL (6.4-8.2)
[2019-12-24 14:26] LABS: C-REACTIVE PROTEIN 12.6 mg/dL (0.0-0.9)
[2019-12-24 14:27] LABS: POTASSIUM 2.9 mmol/L (3.4-5.0)
[2019-12-24 14:32] LABS: HEMATOCRIT 34.9 % (37.0-47.0)
[2019-12-24 15:23] LABS: ANISOCYTOSIS 1+; HYPOCHROMIA 1+; LYMPHOCYTE 7 % (20.0-51.0); MICROCYTOSIS 1+; NEUTROPHILS 92 % (42.0-75.2); PLATELET ESTIMATE INCREASED (NORMAL)
[2019-12-24 15:24] LABS: TOXIC GRANULATION PRESENT
--- NOTE | 2019-12-24 15:45 | NUR ---
Patient taken to CT at this time. She tolerated well.
--- NOTE | 2019-12-24 19:05 | NUR ---
Received report from DEBBIE Moran. Patient is resting quietly in bed. Vitals within normal limits. No further needs noted at this time.
--- NOTE | 2019-12-24 19:15 | NUR ---
REPORT GIVEN TO DEBBIE SIMMONS
[2019-12-25] VITALS (560 sets, daily range): BP systolic 114–149; BP diastolic 55–81; PULSE 52–64; TEMP 98.4; O2SAT 31–100
[2019-12-25 05:20] LABS: ARTERIAL BLD GAS O2 SATURATION 95.9 % (92-100); ARTERIAL BLD GAS TCO2 CT 24.9; ARTERIAL BLOOD GAS BASE EXCESS -0.7 (-2-2); ARTERIAL BLOOD GAS HCO3 23.7 meq/L (22-26); ARTERIAL BLOOD GAS PCO2 38.4 mmHg (35-45); ARTERIAL BLOOD GAS PO2 84.9 mmHg (80-100); ARTERIAL BLOOD GAS pH 7.41 (7.35-7.45)
[2019-12-25 05:47] LABS: BASO % 0.2 % (0.0-2.0); GRAN # 17.4 (1.4-6.5); HEMATOCRIT 38.8 % (37.0-47.0); HEMOGLOBIN 12.3 g/dl (12.5-16.0); LYMPH # 1.2 (1.2-3.4); LYMPH % 6.3 % (20.0-51.0); MEAN CELL VOLUME 79 fl (80.0-100.0); MEAN CORPUSCULAR HEMOGLOBIN 25 pg (27.0-31.0); MEAN CORPUSCULAR HGB CONC 32 g/dl (33.0-37.0); MEAN PLATELET VOLUME 9.5 fl (7.4-10.4); MONO # 0.7 (0.1-0.6); MONO % 3.4 % (1.7-9.3); PLATELET COUNT 662 K/mm3 (130-400); REDCELL DISTRIBUTION WIDTH-CV 16.1 % (11.5-14.5)
[2019-12-25 05:50] LABS: ALBUMIN 3.1 gm/dL (3.5-5.0); BILIRUBIN,TOTAL 0.5 mg/dL (0.0-1.0); CALCIUM 9.3 mg/dL (8.4-10.2); CREATININE, serum 1.04 (0.52-1.25); MAGNESIUM 2.5 mg/dL (1.6-2.3); PHOSPHOROUS 3.2 mg/dL (2.5-4.5); TOTAL PROTEIN 6.8 gm/dL (6.4-8.2)
--- NOTE | 2019-12-25 07:48 | NUR ---
Report given to DEBBIE Moran.
--- NOTE | 2019-12-25 17:58 | NUR ---
DR. BARTLETT CALLED REGARDING LENGTHENING QT INTERVAL, PER WOOD BORER. MEASUREMENT IS 0.62. DR. BARTLETT STATES THAT WE WILL CONTINUE TO MONITOR AND WILL READDRESS TOMORROW WITH A POSSIBLE EKG
--- NOTE | 2019-12-25 19:15 | NUR ---
Received report from DEBBIE Moran.
[2019-12-26] VITALS (821 sets, daily range): BP systolic 120–155; BP diastolic 54–79; PULSE 50–70; TEMP 97.6–98.3; O2SAT 78–98
[2019-12-26 05:21] LABS: ARTERIAL BLD GAS O2 SATURATION 95.5 % (92-100); ARTERIAL BLOOD GAS BASE EXCESS -3.4 (-2-2); ARTERIAL BLOOD GAS HCO3 20.9 meq/L (22-26); ARTERIAL BLOOD GAS PCO2 35.4 mmHg (35-45); ARTERIAL BLOOD GAS PO2 81.2 mmHg (80-100); ARTERIAL BLOOD GAS pH 7.39 (7.35-7.45)
[2019-12-26 06:30] LABS: BASO % 0.1 % (0.0-2.0); EOS % 0.1 % (0-4.0); GRAN # 18.1 (1.4-6.5); GRAN % 87.2 % (42.2-75.2); HEMOGLOBIN 12.1 g/dl (12.5-16.0); LYMPH # 1.2 (1.2-3.4); LYMPH % 5.8 % (20.0-51.0); MEAN CELL VOLUME 80 fl (80.0-100.0); MEAN CORPUSCULAR HEMOGLOBIN 25 pg (27.0-31.0); MEAN CORPUSCULAR HGB CONC 32 g/dl (33.0-37.0); MEAN PLATELET VOLUME 9.7 fl (7.4-10.4); MONO # 1.2 (0.1-0.6); MONO % 5.6 % (1.7-9.3); PLATELET COUNT 594 K/mm3 (130-400); RED BLOOD COUNT 4.77 M/mm3 (4.10-5.30); REDCELL DISTRIBUTION WIDTH-CV 16.1 % (11.5-14.5)
[2019-12-26 06:45] LABS: ALBUMIN 2.9 gm/dL (3.5-5.0); BILIRUBIN,TOTAL 0.4 mg/dL (0.0-1.0); CALCIUM 9.1 mg/dL (8.4-10.2); CREATININE, serum 0.92 (0.52-1.25); MAGNESIUM 2.6 mg/dL (1.6-2.3); PHOSPHOROUS 3.1 mg/dL (2.5-4.5); POTASSIUM 3.1 mmol/L (3.4-5.0); TOTAL PROTEIN 6.2 gm/dL (6.4-8.2)
--- NOTE | 2019-12-26 07:00 | NUR ---
Shift handoff received from DEBBIE Cuba.
--- NOTE | 2019-12-26 07:40 | NUR ---
Report given to DEBBIE Carvajal.
--- NOTE | 2019-12-26 08:00 | NUR ---
Shift assessment complete at this time. Plan of care reviewed at bedside with patient. Additional time taken to address any other needs or concerns. She denies pain or any other discomfort. Vitals stable. Bed in low position, call light within reach.
--- NOTE | 2019-12-26 12:00 | NUR ---
She is resting comfortably in bed. Denies pain or any other discomforts. Bed in low position, call light within reach.
--- NOTE | 2019-12-26 16:00 | NUR ---
She is resting comfortably in bed. Denying any pain or discomforts. Bed in low position, call light within reach.
--- NOTE | 2019-12-26 19:10 | NUR ---
Received report from DEBBIE Carvajal.
--- NOTE | 2019-12-26 19:14 | NUR ---
Shift handoff given to DEBBIE Cuba.
[2019-12-26 19:30] LABS: TB GOLD INTERPRETATION Indeterminate (Negative)
--- NOTE | 2019-12-26 20:01 | NUR ---
Notified PATRICIO Motley, of indeterminate result of TB test (QFT). According to comments attached to result, recollection of sample is recommended. Received orders to notify Dr. Hilliard in the AM.
[2019-12-27] VITALS (701 sets, daily range): BP systolic 139–155; BP diastolic 62–75; PULSE 52–80; TEMP 98–98.6; O2SAT 77–99
[2019-12-27 06:10] LABS: HEMATOCRIT 39.1 % (37.0-47.0); HEMOGLOBIN 12.4 g/dl (12.5-16.0); MEAN CELL VOLUME 80 fl (80.0-100.0); MEAN CORPUSCULAR HEMOGLOBIN 25 pg (27.0-31.0); MEAN CORPUSCULAR HGB CONC 32 g/dl (33.0-37.0); MEAN PLATELET VOLUME 9.8 fl (7.4-10.4); PLATELET COUNT 583 K/mm3 (130-400); RED BLOOD COUNT 4.91 M/mm3 (4.10-5.30); REDCELL DISTRIBUTION WIDTH-CV 16.1 % (11.5-14.5)
[2019-12-27 06:18] LABS: ARTERIAL BLD GAS TCO2 CT 26.4; ARTERIAL BLOOD GAS BASE EXCESS 0.2 (-2-2); ARTERIAL BLOOD GAS HCO3 25.1 meq/L (22-26); ARTERIAL BLOOD GAS PCO2 41.7 mmHg (35-45); ARTERIAL BLOOD GAS PO2 66.7 mmHg (80-100)
[2019-12-27 06:23] LABS: ALBUMIN 2.9 gm/dL (3.5-5.0); BILIRUBIN,TOTAL 0.5 mg/dL (0.0-1.0); CREATININE, serum 0.79 (0.52-1.25); MAGNESIUM 2.6 mg/dL (1.6-2.3); PHOSPHOROUS 2.8 mg/dL (2.5-4.5)
[2019-12-27 06:25] LABS: POTASSIUM 2.8 mmol/L (3.4-5.0)
[2019-12-27 06:32] LABS: BAND 5 % (0-10); HYPOCHROMIA 1+; LYMPHOCYTE 2 % (20.0-51.0); METAMYELOCYTE 1 % (0-0); MYELOCYTE 1 % (0-0); NEUTROPHILS 88 % (42.0-75.2); PLATELET ESTIMATE INCREASED (NORMAL)
[2019-12-27 06:33] LABS: ANISOCYTOSIS 1+
--- NOTE | 2019-12-27 06:45 | NUR ---
Notified DARREN of patient's critical WBC and potassium lab results. Will replace potassium according to protocol. No new orders received at this time.
--- NOTE | 2019-12-27 07:23 | NUR ---
Report given to DEBBIE Carvajal.
--- NOTE | 2019-12-27 08:00 | NUR ---
Shift assessment complete at this time. Plan of care reviewed at bedside with patient. Additional time taken to address any other needs or concerns. Vitals stable at this time. Denies pain or any other discomforts. Bed in low position, call light within reach, will continue to monitor.
--- NOTE | 2019-12-27 12:15 | NUR ---
Pt is resting comfortably in bed. Denies pain or any other discomforts. Bed in low position, call light within reach, will continue to monitor.
[2019-12-27 14:35] LABS: ANA SCREEN with REFLEX Negative (Negative)
--- NOTE | 2019-12-27 16:25 | NUR ---
She is resting comfortably in bed. Denies pain or any other discomforts. Bed in low position, call light within reach. Vitals stable.
--- NOTE | 2019-12-27 19:05 | NUR ---
Shift report given to DEBBIE Cuba.
[2019-12-28] VITALS (671 sets, daily range): BP systolic 127–137; BP diastolic 54–74; PULSE 48–74; TEMP 97.9–99; O2SAT 72–99
[2019-12-28 05:50] LABS: BASO % 0.1 % (0.0-2.0); GRAN # 19.9 (1.4-6.5); GRAN % 88.7 % (42.2-75.2); HEMATOCRIT 38.7 % (37.0-47.0); HEMOGLOBIN 12.2 g/dl (12.5-16.0); LYMPH # 1.1 (1.2-3.4); LYMPH % 4.7 % (20.0-51.0); MEAN CELL VOLUME 80 fl (80.0-100.0); MEAN CORPUSCULAR HEMOGLOBIN 25 pg (27.0-31.0); MEAN CORPUSCULAR HGB CONC 32 g/dl (33.0-37.0); MEAN PLATELET VOLUME 9.9 fl (7.4-10.4); MONO # 1.2 (0.1-0.6); MONO % 5.3 % (1.7-9.3); PLATELET COUNT 507 K/mm3 (130-400); RED BLOOD COUNT 4.84 M/mm3 (4.10-5.30); REDCELL DISTRIBUTION WIDTH-CV 16.3 % (11.5-14.5)
[2019-12-28 05:52] LABS: ARTERIAL BLD GAS O2 SATURATION 94.6 % (92-100); ARTERIAL BLD GAS TCO2 CT 25.7; ARTERIAL BLOOD GAS BASE EXCESS 0.4 (-2-2); ARTERIAL BLOOD GAS HCO3 24.6 meq/L (22-26); ARTERIAL BLOOD GAS PCO2 38.2 mmHg (35-45); ARTERIAL BLOOD GAS PO2 71.5 mmHg (80-100); ARTERIAL BLOOD GAS pH 7.43 (7.35-7.45)
[2019-12-28 06:10] LABS: ALBUMIN 2.8 gm/dL (3.5-5.0); BILIRUBIN,TOTAL 0.5 mg/dL (0.0-1.0); C-REACTIVE PROTEIN 2.7 mg/dL (0.0-0.9); CALCIUM 8.9 mg/dL (8.4-10.2); CREATININE, serum 0.75 (0.52-1.25); MAGNESIUM 2.6 mg/dL (1.6-2.3); PHOSPHOROUS 2.5 mg/dL (2.5-4.5); TOTAL PROTEIN 5.9 gm/dL (6.4-8.2)
--- NOTE | 2019-12-28 07:20 | NUR ---
Report given to DEBBIE Marie. Patient is sitting up in bed watching television. Vitals within normal limits. She is on AirVo at this time, 40L and 60% FiO2, tolerating well. No further needs noted at this time.
--- NOTE | 2019-12-28 09:00 | NUR ---
Follow up; Patient and Physician Scientist greeted eachother through closed doors. Physician Scientist continues to offer prayer for Dory.
--- NOTE | 2019-12-28 09:30 | NUR ---
Called report to RN for patient going to room 305. No questions asked.
--- NOTE | 2019-12-28 10:00 | NUR ---
rounded at patients bedside. He said he will be calling [facility] for possible transfer and asked if I could call the patients daughter, Anita. She was called shortly after and was updated on patient plan of care and of possible transfer to . I told her I would call her back as soon as I found out any updates.
--- NOTE | 2019-12-28 12:49 | NUR ---
RUBINA attended clinical rounds. The patient's repeat COVID results are still pending. Dr. Hillirad plans to speak to [facility] about a possible transfer. SW to fax updates to [facility] and will continue to follow.
--- NOTE | 2019-12-28 19:46 | NUR ---
Spoke to patients daughter. Updated her that patient will be moving to medical bed 305. ANd told her about plan for family meeting at 0930 tomorrow morning.
--- NOTE | 2019-12-28 23:21 | NUR ---
Pt arrived from ICU via bed. placed in room on airborne precautions. assessment completed and medications given per APR. lung sounds are diminished in all lobes, pt denies shortness of breath and reports a nonproductive cough. on AirVo currently. hear sounds are regular and bradycardic. two stage II pressure ulcers on the buttocks. no other needs at this time, will continue to monitor.
[2019-12-29] VITALS (7 sets, daily range): BP systolic 138–176; BP diastolic 62–80; PULSE 51–75; TEMP 97.7–99.9
--- NOTE | 2019-12-29 00:36 | NUR ---
this nurse received call for Tele monitor that pt heart rate was down to 45 sustaining. notified PATRICIO Motley. per orders from Tiesha CURRY, will continue to monitor and report back if heart rate drops below 40 bpm.
[2019-12-29 04:25] LABS: ARTERIAL BLD GAS O2 SATURATION 93.5 % (92-100); ARTERIAL BLD GAS TCO2 CT 28.4; ARTERIAL BLOOD GAS HCO3 27.2 meq/L (22-26); ARTERIAL BLOOD GAS PCO2 40.3 mmHg (35-45); ARTERIAL BLOOD GAS PO2 66.6 mmHg (80-100); ARTERIAL BLOOD GAS pH 7.45 (7.35-7.45)
--- NOTE | 2019-12-29 08:30 | NUR ---
PT PLEASANT, AOX4, VERY SOFTSPOKEN, PT REPORTS MINIMAL CHEST PAIN, DID NOT GIVE NUMBER. PT THEN SAID IT WENT AWAY, PT VITALS TAKEN, MEDICATIONS GIVEN, ASSESSMENT PERFORMED, WATER BROUGHT IN FOR PT, NO OTHER NEEDS AT THIS TIME.
--- NOTE | 2019-12-29 08:50 | NUR ---
RT CALLED ABOUT OXYGEN SATURATION AT 87%. PT RECOVERED TO 91%.
[2019-12-29 09:07] LABS: HEMATOCRIT 39.7 % (37.0-47.0); HEMOGLOBIN 12.7 g/dl (12.5-16.0); MEAN CELL VOLUME 81 fl (80.0-100.0); MEAN CORPUSCULAR HEMOGLOBIN 26 pg (27.0-31.0); MEAN CORPUSCULAR HGB CONC 32 g/dl (33.0-37.0); MEAN PLATELET VOLUME 10.3 fl (7.4-10.4); PLATELET COUNT 465 K/mm3 (130-400); RED BLOOD COUNT 4.92 M/mm3 (4.10-5.30); REDCELL DISTRIBUTION WIDTH-CV 16.3 % (11.5-14.5)
[2019-12-29 09:16] LABS: ALBUMIN 2.8 gm/dL (3.5-5.0); BILIRUBIN,TOTAL 0.5 mg/dL (0.0-1.0); CALCIUM 8.9 mg/dL (8.4-10.2); CREATININE, serum 0.66 (0.52-1.25); MAGNESIUM 2.7 mg/dL (1.6-2.3); PHOSPHOROUS 2.5 mg/dL (2.5-4.5); POTASSIUM 3.3 mmol/L (3.4-5.0); TOTAL PROTEIN 5.7 gm/dL (6.4-8.2)
--- NOTE | 2019-12-29 09:30 | NUR ---
PT STILL C/O CHEST PAIN, MILLIE AWARE.
[2019-12-29 09:39] LABS: LYMPHOCYTE 4 % (20.0-51.0); NEUTROPHILS 94 % (42.0-75.2); PLATELET ESTIMATE NORMAL (NORMAL)
--- NOTE | 2019-12-29 10:04 | NUR ---
RETURNED MISSED CALL FROM DR. BARTLETT, RT CALLED FOR EKG, LAB CALLED FOR TROPONIN, RADIOLOGY CALLED FOR XRAY. NO OTHER NEEDS.
--- NOTE | 2019-12-29 12:40 | NUR ---
I met with daughter Anita Damon and Dr Hilliard for family meeting with pt's son Adan on phone earlier this morning. Dr Hilliard explained the concerns that exist with covid and we are still waiting on latest testing, that her condition does not seem to be improving a lot and yet without a positive covid test, we are doing all we can for her as verified with [facility] and infectious disease. Upon completion of this meeting we moved up to patient's room after recieving appropriate clearance. Daughter Anita and I went intoo pt room with PPE to discuss the choices of comfort care vs continued aggressive care. Pt did listen to us and then stated she was comfortable (except when she had to cough) and that she was still wanting to pursue aggressive care in hopes of getting better. She was made aware that the choice is hers and that she can advise us anytime if her choice to pursue aggressive care changes. She acknowledged this. Dr Hilliard did come up to see pt and her daughter in the room, showed the xray results and the final decision is to use steroids for another 5 days and see where things are at that point. Visitation is very important to this family and daughter was very grateful for the chance to see her mother. They are aware that this visit is a one time thing at this point.
--- NOTE | 2019-12-29 16:37 | NUR ---
Account Manager Relief faxed clinical updates to [facility]. Patient had palliative consult and would like to continue with agressive treatment. SW will continue to follow.
[2019-12-29 17:03] LABS: ANGIOTENSIN CONVERTING ENZYME <5 U/L (16 - 85)
--- NOTE | 2019-12-29 17:04 | NUR ---
PT PLEASANT, AOX4, ON AIVOR 35L, 60% FIO2. VITALS STABLE, PUREWICC IN PLACE, READJUSTED Q2H, PT REFUSED TURNS TWICE. ALL PT MEDICATIONS GIVEN, PT REFUSED POTASSIUM IN JUICE SO POTASSIUM PILLS GIVEN. PT REFUSED BREAKFAST AND LUNCH STATING "IM JUST NOT HUNGRY". DAUGHTER VISITED TODAY, PT SEEMED IN BETTER SPIRITS AFTERWARDS. PICC LINE FLUSHING AND GETTING BLOOD RETURN. NO OTHER NEEDS AT THIS TIME.
--- NOTE | 2019-12-29 18:17 | NUR ---
PT INCONTINENT OF STOOL, PERICARE PROVIDED, NEW PUREWICC PLACED, MG AND BRIEF CHANGED, PT REPORTS NOT BEING ABLE TO EAT DINNER DUE TO NOT HAVING TEETH, PT REQUESTED ICE CREAM AND IT WAS GIVEN.
--- NOTE | 2019-12-29 22:47 | NUR ---
Pt resting in bed, assessment completed and medications given per MAR. lung sounds are diminished with crackles, pt reports shortness of breath and dry cough. oxygen via AirVo on at 35 liters. heart sounds are regular and normal, pulses equal bilaterally. two stage II pressure ulcers on each buttock, left side covered in mepilex. pt had loose medium bowel movement, changed and purewick changed. airborne precautions in place, no other needs at this time. will continue to monitor.
[2019-12-30] VITALS (7 sets, daily range): BP systolic 136–160; BP diastolic 57–87; PULSE 57–66; TEMP 97.7–100.3
--- NOTE | 2019-12-30 06:19 | NUR ---
pt sleeping most of the night, called for any needs. changed and purewick replaced as needed. continues on AirVo at 35 liters, oxygen sat at 92%. no other needs at this time.
[2019-12-30 06:54] LABS: CALCIUM 8.3 mg/dL (8.4-10.2); CREATININE, serum 0.59 (0.52-1.25)
[2019-12-30 07:16] LABS: POTASSIUM 2.9 mmol/L (3.4-5.0)
[2019-12-30 07:17] LABS: HEMATOCRIT 38.1 % (37.0-47.0); HEMOGLOBIN 12.1 g/dl (12.5-16.0); MEAN CELL VOLUME 80 fl (80.0-100.0); MEAN CORPUSCULAR HEMOGLOBIN 25 pg (27.0-31.0); MEAN CORPUSCULAR HGB CONC 32 g/dl (33.0-37.0); MEAN PLATELET VOLUME 10.6 fl (7.4-10.4); PLATELET COUNT 430 K/mm3 (130-400); RED BLOOD COUNT 4.78 M/mm3 (4.10-5.30); REDCELL DISTRIBUTION WIDTH-CV 15.9 % (11.5-14.5)
--- NOTE | 2019-12-30 07:26 | NUR ---
REPORTED CRITICAL LABS TO CHARLIE SANABRIA.
[2019-12-30 08:11] LABS: BAND 5 % (0-10); LYMPHOCYTE 9 % (20.0-51.0); NEUTROPHILS 85 % (42.0-75.2); PLATELET ESTIMATE NORMAL (NORMAL)
--- NOTE | 2019-12-30 08:50 | NUR ---
TESS, INFECTIOUS DISEASE RN CALLED ABOUT ISOLATION PRECAUTIONS. TESS AGREED WITH DR. HELMS ANALYSIS THAT PT DOES NOT NEED TO BE IN ISOLATION DUE TO 2 NEGATIVE COVID19 TESTS AND AN INDETERMINENT TB.
--- NOTE | 2019-12-30 08:54 | NUR ---
Daughter Anita notified that second covid test is back and that after Dr Hilliard, infectious disease physician and Bridgett our infection control nurse have talked, pt will be moved to a regular hospital room and that she may now visit her per hospital visitation rules. Daughter was relieved to hear this and will plan to be in to see her Mom later today.
--- NOTE | 2019-12-30 09:00 | NUR ---
PT AOX4, PLEASANT, PT GIVEN MEDICATIONS, VITALS REVIEWED, ASSESSMENT PERFORMED, PT REPOSITIONED, PT NOT INCONTINENT AT THIS TIME, PUREWICC DRAINING URINE WELL, NO OTHER NEEDS AT THIS TIME.
--- NOTE | 2019-12-30 09:38 | NUR ---
PT C/0 "I CAN'T BREATHE". VITALS TAKEN AND STABLE. PT STATES CHEST PAIN THAT WORSENS WITH BREATHING. PT UNABLE TO DESCRIBE CHEST PAIN BUT POINTS TO ITS LOCATION MID STERNUM. PT ALSO REPORTS FEELING LIGHT HEADED. DR. BARTLETT CALLED AND STAT XRAY AND EKG ORDERED.
--- NOTE | 2019-12-30 11:07 | NUR ---
PT LINENS CHANGED, PERICARE PROVIDED, BARRIER CREAM APPLIED, NEW DRESSING TO ULCERS ON GLUTEOUS, NEW PUREWICC PLACED, NO OTHER NEEDS AT THIS TIME.
--- NOTE | 2019-12-30 14:22 | NUR ---
Matrix Supervisor reviewed PT note which recommends SNF for patient upon discharge. SW contacted patient's daughter, Anita who advised patient has been to [facility] before and would like to have a referral sent there. RUBINA contacted [facility] and faxed referral. RUBINA also contacted Dimitri at [facility] to provide update. Later in the day, RUBINA collaborated with Hospitalist who advised he and Dr. Hilliard think patient may benefit from a stay at [facility]. RUBINA spoke with Anita about this and Anita would like to discuss this with patient and her family. RUBINA advised that a referral would be sent for review but that RUBINA would follow up on family's dicussion. Anita agrees to have referral sent. RUBINA contacted Carl and faxed referral. Carl states he will call Anita later today. RUBINA provided Carl's contact information to Anita per her request. Patient to move rooms as her COVID test results were negative. RUBINA will continue to follow.
[2019-12-30 15:16] LABS: COLLECTION METHOD CATHETER
[2019-12-30 15:24] LABS: MUCOUS Present /lpf; PH 6 (5-8); SQUAMOUS EPITHELIAL 0-2 /hpf; URINE APPEARANCE Clear; URINE BACTERIA None Seen /hpf; URINE BILIRUBIN Negative (NEGATIVE); URINE BLOOD Negative (NEGATIVE); URINE COLOR Yellow; URINE GLUCOSE Negative (NEGATIVE); URINE KETONE Negative (NEGATIVE); URINE LEUKOCYTE ESTERASE Negative (NEGATIVE); URINE NITRATE Negative (NEGATIVE); URINE PROTEIN(semi-quant) Negative (NEGATIVE); URINE RBC None Seen /hpf; URINE UROBILINOGEN Negative (NEGATIVE); URINE WBC 0-2 /hpf
--- NOTE | 2019-12-30 16:47 | NUR ---
pt moved to [facility] with belongings, pericare provided for urinary incontinence, ice water brought to pt per pt request.
--- NOTE | 2019-12-30 17:25 | NUR ---
PT SAID "I CAN'T BREATHE". VITALS TAKEN, STABLE, PT REPORTS CHEST DISCOMFORT WHEN SHE BREATHES IN. PT HAS BEEN EXPERIENCING THIS ALL DAY. PT CURRENTLY ASLEEP. NO OTHER NEEDS.
--- NOTE | 2019-12-30 19:00 | NUR ---
Pt was slepping when this nurse went for a bedside handover. No further needs at his time,
[2019-12-31] VITALS (7 sets, daily range): BP systolic 130–148; BP diastolic 48–68; PULSE 49–61; TEMP 97.3–98.4
--- NOTE | 2019-12-31 02:29 | NUR ---
Pt assessment completed and charted. Meds provided as per APR. Pt is settled on her bedside. Call light is on reach. No further needs at this time.
--- NOTE | 2019-12-31 06:44 | NUR ---
Pt had an uneventful night, slept through out the night.Meds provided as per APR. No further needs at this time.
--- NOTE | 2019-12-31 09:58 | NUR ---
I visited with pt in room 318. She reports that she is doing ok. "It hurts in my chest when I cough but otherwise I am comfortable and doing ok! Tell my daughter she doesn't have to come see me, I don't want her to worry." When I told her that Anita had shared with me that it was very reassuring for her to see her looking so good, she smiled and thanked me for sharing that.
--- NOTE | 2019-12-31 12:40 | NUR ---
Vancomycin Follow-up Pharmacy Note Current regimen: VANCOMYCIN 1.5G Q24H Vancomycin trough: 10.4 Adjustments: INCREASE TO VANCOMYCIN 1.25G Q12H. TROUGH 01/01 @0930
--- NOTE | 2019-12-31 15:22 | NUR ---
Gis Instructor collaborated with Carl at [facility] who advised he received authorization from [employer]. Henry to call Anita this afternoon and states he could have beds available tomorrow. RUBINA contacted Usman at [facility] who advised they cannot meet patient's needs at this time but would follow while patient is at [facility]. URBINA met with Anita and provided the above update. Anita expressed understanding but also stated she would not force her mother to go anywhere. Anita expressed concern about her mother being two hours away with no visitors. RUBINA advised that during this time with [facility], there is limited bed availability and if patient needs to be discharged to [facility], we would need to consider this. Anita is going to speak with her mother this afternoon. SW will continue to follow.
--- NOTE | 2019-12-31 15:50 | NUR ---
Anita asked me to talk with her mother about [facility]. She is feeling like this move would be happening very quickly and will talk with other family members about it. Pt again states that she is not ready to yet and she will do what she has to to live which has been her stand for several days now. Daughter will be here in the morning to talk with Dr on morning rounds.
--- NOTE | 2019-12-31 19:46 | NUR ---
Patient alert and oriented to self and location. Patient complain of irritation in her perineal area, Desenex was ordered. Patient continue to receive multiple antibiotic and Antifungal. Potassium this am was 3.2, replace with IV potassium per potassium protocol, recheck scheduled for tomorrow. Patient refuse meals. RN continue to encourage moderate fluid intake. Patient have adequate urine output on this shift. Daughter visit at bedside today.
--- NOTE | 2019-12-31 22:00 | NUR ---
Resting in bed. Assessment complete. Lungs clear. Heart sounds normal. Bowels active x4. Pulses present throughout. No edema noted. PICC to right upper flushed without complications. Patient incontinent of bowel and bladder. Cares provided. Patient has 2-stage 2 pressure ulcers to right and left buttock present. Cleaned and mepilex provided. Reported pain with breathing after movement. Educated patient to practice deep breathing techniques. Will closely monitor.
--- NOTE | 2019-12-31 22:22 | NUR ---
Patient reporting chest pains. Pointing to lower mid sternal area. Reports increased with deep breathing. On 4 liters oxymask at 93%. Notified PATRICIO Diaz. Will review patient chart and call back.
--- NOTE | 2019-12-31 22:40 | NUR ---
Per PATRICIO Diaz pain most likely muscular. Ordered tramadol. Provided to patient. Will monitor.
--- NOTE | 2020-01-01 00:06 | NUR ---
Resting in bed. Denies needs. Call light in reach.
--- NOTE | 2020-01-01 02:15 | NUR ---
Incontinent of bowel and urine. Cares provided. Denies other needs at this time.
[2020-01-01 03:14] VITALS: BP 137/58; PULSE 58; TEMP 98.5
--- NOTE | 2020-01-01 04:08 | NUR ---
Resting in bed. Inconitnent of bowel. Cares provided. Call light in reach.
--- NOTE | 2020-01-01 05:29 | NUR ---
Patient incontinent of bowel and bladder throughout night. Cares provided each time. Patient also repositioned Q2H. Had x1 episode of sternal chest pain. Given PRN tramadol and provider was notified. Resolved with tramadol. Otherwise uneventful night. Resting in bed tihs AM. Call light in reach.
--- NOTE | 2020-01-01 07:11 | NUR ---
Report given to DEBBIE Simmons
[2020-01-01 07:18] VITALS: BP 144/60; PULSE 65; TEMP 97.3
[2020-01-01 07:42] LABS: CALCIUM 8.1 mg/dL (8.4-10.2); CREATININE, serum 0.65 (0.52-1.25)
[2020-01-01 07:44] LABS: POTASSIUM 2.9 mmol/L (3.4-5.0)
[2020-01-01 08:12] LABS: HEMATOCRIT 39.4 % (37.0-47.0); HEMOGLOBIN 12.6 g/dl (12.5-16.0); MEAN CELL VOLUME 79 fl (80.0-100.0); MEAN CORPUSCULAR HEMOGLOBIN 25 pg (27.0-31.0); MEAN CORPUSCULAR HGB CONC 32 g/dl (33.0-37.0); MEAN PLATELET VOLUME 11.1 fl (7.4-10.4); PLATELET COUNT 332 K/mm3 (130-400); RED BLOOD COUNT 4.97 M/mm3 (4.10-5.30); REDCELL DISTRIBUTION WIDTH-CV 16.1 % (11.5-14.5)
--- NOTE | 2020-01-01 09:06 | NUR ---
Follow-up visit; Patient folded her hands and prayed with Instructional Supervisor and seemed to thank Instructional Supervisor for blessings.
--- NOTE | 2020-01-01 09:30 | NUR ---
COLLECTED STOOL SAMPLE. CRITICAL WBC REPORTED TO RONALDO GUERRA. STOOL CHUNKY AND MUCOUSY. PT C/O NAUSEA SO SHE DOES NOT WANT TO EAT, PT C/O BURNING WHILE URINATING SO SHE DOES NOT WANT TO DRINK, RONALDO GUERRA NOTIFIED OF THESE C/O'S. PERICARE PROVIDED, PT ATTEMPTED TO REFUSE PILLS BUT AGREED TO TAKE THEM AFTER EDUCATION ON THEIR IMPORTANCE/PURPOSE. PT ASSESSMENT PERFORMED, VITALS TAKEN, MEDICATIONS GIVEN. NO OTHER NEEDS AT THIS TIME.
[2020-01-01 10:33] LABS: BAND 1 % (0-10); LYMPHOCYTE 3 % (20.0-51.0); NEUTROPHILS 93 % (42.0-75.2)
[2020-01-01 10:37] LABS: ANISOCYTOSIS 1+; HYPOCHROMIA 1+; PLATELET ESTIMATE NORMAL (NORMAL)
[2020-01-01 11:14] LABS: CLOSTRIDIUM DIFF A/B NEG; CLOSTRIDIUM DIFF A/B INTERP No C.diff present
[2020-01-01 12:05] VITALS: BP 148/54; PULSE 55; TEMP 97.9
--- NOTE | 2020-01-01 12:19 | NUR ---
GLEN CARE PROVIDED, BRIEF CHANGED, [place] PLACED. NO OTHER NEEDS.
[2020-01-01 12:22] LABS: COLLECTION METHOD CATHETER
[2020-01-01 12:30] LABS: PH 6 (5-8); SQUAMOUS EPITHELIAL 0-2 /hpf; URINE APPEARANCE Clear; URINE BACTERIA None Seen /hpf; URINE BILIRUBIN Negative (NEGATIVE); URINE BLOOD Negative (NEGATIVE); URINE COLOR Straw; URINE GLUCOSE Negative (NEGATIVE); URINE KETONE Negative (NEGATIVE); URINE LEUKOCYTE ESTERASE Negative (NEGATIVE); URINE NITRATE Negative (NEGATIVE); URINE PROTEIN(semi-quant) Negative (NEGATIVE); URINE RBC 0-2 /hpf; URINE UROBILINOGEN Negative (NEGATIVE)
[2020-01-01 13:21] VITALS: BP 148/54; PULSE 55; TEMP 97.9
--- NOTE | 2020-01-01 13:30 | NUR ---
Primary nurse was assisted with [phone] patient care by [employer] student Pauly Lester and [facility] instructor Kim Nina RN-.
[2020-01-01 15:01] VITALS: BP 136/49; PULSE 57; TEMP 97.7
[2020-01-01 15:10] LABS: HISTOPLASMA ID Negative (Negative); HISTOPLASMA MYCELIAL Negative (Negative); HISTOPLASMA YEAST Negative (Negative)
--- NOTE | 2020-01-01 15:16 | NUR ---
REPORT CALLED TO [facility].
--- NOTE | 2020-01-01 15:20 | NUR ---
PT REQUESTED FORESTRY SCIENTIST TO VISIT, FORESTRY SCIENTIST DID NOT ANSWER, MESSAGE LEFT FOR FORESTRY SCIENTIST.
--- NOTE | 2020-01-01 15:52 | NUR ---
Catalogue Compiler attended clinical rounds with the team and patient is agreeable to discharge to [facility] once a bed is available. Patient's daughter Anita is also in agreement. RUBINA was contacted by Carl at [facility] who advised they have a bed and would like patient to be picked up at 1800. RUBINA contacted [facility] to set transport time for 1800. RUBINA provided transport time to patient's daughter, Anita and to RN, Iris. RUBINA placed EMS forms in chart and placed copies on top of chart. RUBINA obtained patient's signatures on EMS forms. RUBINA faxed discharge orders to Carl. Accepting physician is Dr. Najera. No additional needs at this time.
--- NOTE | 2020-01-01 16:07 | NUR ---
PT DENIED PAIN MEDICATION, FRESH ICE WATER AND ICE CREAM BROUGHT IN FOR PT.
--- NOTE | 2020-01-01 17:05 | NUR ---
REPORT CALLED TO RECIEVING NURSE EARLIER, PT REPORTS DISCOMFORT IN CHEST BUT DENIES NEED FOR PAIN MEDICATION. PT REFUSED LUNCH AND DINNER, ONLY WANTS [place]ILL[place] ICE CREAM AND ICE WATER. PT HAS BEEN DRINKING MORE WATER SINCE GOLDSMITH CATHETER WAS PLACED. PT HAVING GOOD OUTPUT IN [place]. PT URINE YELLOW WITH SEDIMENT. PT DAUGHTER AWARE OF TRANSFER PLAN. WILL CALL DAUGHTER WHEN PT IS PICKED UP FOR TRANSFER. DISCHARGE PAPERWORK TOGETHER IN PACKET. NO OTHER NEEDS.
--- NOTE | 2020-01-01 18:20 | NUR ---
pt placed on stretcher for ems, hearing aids and glasses on pt, bag of belongings transferred with pt. Daughter Anita notified that pt left hospital. no other needs at this time.
[2020-01-02 14:41] LABS: COCCIDIOIDES AB IGG Negative (Negative); COCCIDIOIDES AB IGM Negative (Negative); COCCIDIOIDES CF Negative (Negative)
== END 2020-01-01 18:20 | DRG 871 ==
LOC: COL.ER 16:39 → MEDICAL 19:03 → ICU 12-24 11:39 → MEDICAL 12-28 20:47
PROVIDERS: Family Medicine; Internal Medicine Pulmonary Disease; Physician Assistant; Student in an Organized Health Care Education/Training Program; ADMIT Internal Medicine
PROC: 02HV33Z Insertion of Infusion Device into Superior Vena Cava, Percutaneous Approach (ICD-10-PCS; principal; 2019-12-24)
DX: A41.9 Sepsis, unspecified organism (principal); J18.9 Pneumonia, unspecified organism; J96.01 Acute respiratory failure with hypoxia; I50.33 Acute on chronic diastolic (congestive) heart failure; Z20.828 Contact with and (suspected) exposure to other viral communicable diseases; I11.0 Hypertensive heart disease with heart failure; F32.9 Major depressive disorder, single episode, unspecified; G25.81 Restless legs syndrome; G20 Parkinson's disease; F02.80 Dementia in other diseases classified elsewhere, unspecified severity, without behavioral disturbance, psychotic disturbance, mood disturbance, and anxiety; D47.3 Essential (hemorrhagic) thrombocythemia; E66.9 Obesity, unspecified; N32.81 Overactive bladder; E87.6 Hypokalemia; D50.9 Iron deficiency anemia, unspecified; R07.9 Chest pain, unspecified; R19.7 Diarrhea, unspecified; R33.9 Retention of urine, unspecified; M06.9 Rheumatoid arthritis, unspecified; I35.0 Nonrheumatic aortic (valve) stenosis; Z86.73 Personal history of transient ischemic attack (TIA), and cerebral infarction without residual deficits; Z88.1 Allergy status to other antibiotic agents; Z79.82 Long term (current) use of aspirin; Z68.37 Body mass index [BMI] 37.0-37.9, adult
CPT/HCPCS: 99222-AI; 99232-AI; 99233-AI; 99239; C1751; J0692; J0696; J1450; J1650; J1940; J2543; J2920; J2930; J3370; J3480; J7050; J7120; J7512; Q9967